=== PATIENT | female | born 1935 | race Caucasian/White ===

== ENCOUNTER 2019-03-26 14:23 | Emergency (ER) | payer OTHER ==
[~2019-03-26] VITALS: Ht 170.2 cm; Wt 80.9 kg
[2019-03-26 14:30] VITALS: Ht 170.2 cm; Wt 80.9 kg
[2019-03-26 14:56] LABS: BASOPHILS 0.5 % (0-2); EOSINOPHILS 1.7 % (0-7); HEMATOCRIT 45.9 % (36.0-48.0); HEMOGLOBIN 15.5 g/dL (12-16); IMMATURE GRANULOCYTES 0.2 % (0-5); LYMPHOCYTES 28.3 % (15-50); MCH 30.2 pg (26.0-34.0); MCHC 33.8 g/dL (31.0-37.0); MCV 89.3 fL (80.0-100.0); MEAN PLATELET VOLUME 10.4 fL (7.4-10.4); MONOCYTES 6.7 % (2-11); NEUTROPHILS 62.6 % (40-80); PLATELET COUNT 135 10x3/uL (130-400); RBC 5.14 10x6/uL (4.00-5.40); RDW 13.7 % (11.5-14.5); WBC 8.6 10x3/uL (4.8-10.8)
[2019-03-26 15:11] LABS: ALBUMIN 3.6 g/dL (3.4-5.0); ALKALINE PHOSPHATASE 56 U/L (46-116); ALT (SGPT) 33 U/L (10-68); BILIRUBIN - TOTAL 0.79 mg/dL (0.2-1.3); CALC OSMOLALITY 282 mosm/kg (275-300); CALCIUM 8.8 mg/dL (8.5-10.1); CARBON DIOXIDE 29.5 mmol/L (21.0-32.0); CHLORIDE - SERUM 106 mmol/L (98-107); CREATININE - SERUM 0.8 mg/dL (0.6-1.3); GLUCOSE 118 mg/dL (74-106); POTASSIUM - SERUM 3.8 mmol/L (3.5-5.1); PROTEIN - SERUM 6.8 g/dL (6.4-8.2); SODIUM 142 mmol/L (136-145); UREA NITROGEN 11 mg/dL (7-18); eGFR NON AFRICAN AMERICAN 73 mL/min (90-120)
[2019-03-26 15:23] LABS: CKMB 8.2 U/L (0.0-3.6); CREATINE KINASE 391 UL (21-215); TROPONIN-I 0.053 ng/mL (0.000-0.060)
[2019-03-26] MEDS ORDERED: BETAPACE 80 MG80 MG PO (16:22)
[2019-03-26 16:57] VITALS: BP 134/75
== END 2019-03-26 16:58 | disposition home or self-care (01) ==
LOC: D.ER 14:23
PROVIDERS: Emergency Medicine
DX: I48.91 Unspecified atrial fibrillation (principal)

== ENCOUNTER 2019-05-13 11:00 | Outpatient (CLI) | payer OTHER ==
[~2019-05-13] VITALS: Ht 170.2 cm; Wt 79.5 kg
--- NOTE | ~2019-05-13 | HEMODYNAMI ---
PATIENT:ANTONIO LUCAS MEDICAL RECORD: [id number] : 37 LOCATION:[facility] ADMISSION DATE: 05/13/19 Generatedon:05/13/201913:18 Patient name: ANTONIO LUCAS Patient #: [id number] SSN: : 1935 Date of study: 05/13/2019 Page: Of Hemodynamic Procedure Report Patient Data Patient Demographics Procedure consent was obtained First Name: ANTONIO Gender: Female Last Name: LANCE : 1935 Patient #: [id number] Age: 83 year(s) Race: Unknown Additional ID: [id number] Contact details Address: [facility] [employer] [facility] State: [place] City: [place] Zip code: [address] Past Medical History Allergies Allergen Reaction Date Comments Reported Other allergy 05/13/2019 codeine. Admission Admission Data Admission Date: 05/13/2019 Admission Time: 11:00 Admit Source: Other Lab Results Lab Result Date: 05/13/2019 Lab Result Time: 11:25 Biochemistry Name Units Result Min Max BUN mg/dl 21 --(----)-* 7 18 Creatinine mg/dl 1 --(--*-)-- 0.6 1.3 CBC Name Units Result Min Max Hematocrit % 44.3 --(*---)-- 42 54 Hemoglobin g/dl 15 --(-*--)-- 13.5 17.5 Procedure Procedure Types Cath Procedure Diagnostic Procedure Cardioversion External Procedure Description Procedure Date Procedure Date: 05/13/2019 Procedure Start Time: 13:07 Procedure End Time: 13:14 Procedure Staff Name Function Dung Angulo RN Nurse Mo Galvan RT Monitor Gerry Robledo CRNA Additional personnel Vicente Conrad MD Performing Physician Procedure Data Cath Procedure Fluoroscopy Diagnostic fluoroscopy Total fluoroscopy Time: 0 time: 0 min min Diagnostic fluoroscopy Total fluoroscopy dose: 0 dose: 0 mGy mGy Contrast Material Contrast Material Type Amount (ml) Isovue 300 0 Estimated blood loss: 0 ml Procedure Complications No complications Procedure Medications Medication Administration Route Dosage Oxygen etCO2 Nasal cannula 2 l/min Refer to Anesthesia Notes for Sedation Medications 0.9% NaCl I.V. 100 ml/hr Hemodynamics Rest HGB: 15 (g/dl) Heart Rate: 65 (bpm) Snapshots Pre Cath Intra NCS Post Cath Vital Signs Time Heart Resp SPO2 etCO2 NIBP (mmHg) Rhythm Pain Sedation Rate (ipm) (%) (mmHg) Status Level (bpm) 13:02:37 68 13 98 0 151/89(119) NSR 0 (11) 10(A) , No pain 13:07:24 74 9 95 27.7 154/99(118) NSR 0 (11) 10(A) , No pain 13:11:33 52 15 99 17.2 124/69(95) NSR 0 (11) 10(A) , No pain Medications Time Medication Route Dose Verified Delivered Reason Notes Effective ness by by 13:04:54 Oxygen etCO2 2 Vicente Dung Per Nasal l/min [place] Angulo RN physician cannula 13:05:01 Refer to Vicente Razo Anesthesia Houston Angulo RN Notes for Sedation Medications 13:05:12 0.9% NaCl I.V. 100 Vicente Dung Per ml/hr [place] Angulo RN physician Procedure Log Time Note 12:32:04 Informed consent obtained and on chart 12:32:09 Admit Source: Other 12:41:26 Time tracking: Regular hours (M-F 7:00 - 5:00) 12:41:29 Plan of Care:Hemodynamics will remain stable., Cardiac rhythm will remain stable., Comfort level will be maintained., Respiratory function will remain adequate., Patient/ family verbilizes understanding of procedure., Procedure tolerated without complication., Recovers from procedure without complications.. 12:45:29 Dung Angulo RN sent for patient. Start room use. 12:46:48 H&P Date Dictated: 05/07/2019 Within 30 days and on chart., H&P Addendum completed by physician on day of procedure. (MUST COMPLETE FOR ALL OUTPATIENTS). 12:47:50 Patient allergic to Other allergycodeine. 12:48:53 Lab Result : Hemoglobin 15 g/dl 12:48:53 Lab Result : Hematocrit 44.3 % 12:48:53 Lab Result : BUN 21 mg/dl 12:48:53 Lab Result : Creatinine 1 mg/dl 12:48:56 Lab results completed and on chart. 12:53:39 Gerry Robledo CRNA present and monitoring patient for TIVA. 12:57:46 Patient received from Pre/Post Procedure Room to CCL 2 Alert and oriented. Tansferred to table in Supine position. 12:57:47 Warm blankets applied, and artis hugger turned on for patient comfort. 12:57:47 Correct patient and procedure confirmed by team. 12:57:48 ECG and BP/O2 sat monitors applied to patient. 12:57:49 Pre-op teaching completed and patient verbalized understanding. 12:57:49 Pre-procedure instructions explained to patient. 12:57:50 Family in waiting room. 12:57:53 Patient NPO since Midnight. 13:01:38 Vital chart was started 13:01:39 Baseline sample Acquired. 13:01:47 Rhythm: atrial fibrillation 13:01:48 Full Disclosure recording started 13:01:50 Is the patient allergic to Iodine/contrast media? No. 13:01:51 Is patient on blood thinner?Yes 13:01:57 ACC The patient was administered the following blood thiners within the last 24 hours: Xarelto 13:01:59 Patient diabetic? No. 13:02:01 Previous problem with sedation/anesthesia? No ? 13:02:02 Snore? No 13:02:03 Sleep apnea? No 13:02:04 Deviated septum? No 13:02:05 Sticks out tongue? Yes 13:02:05 Opens mouth fully? Yes 13:02:07 Airway obstruction? No ? 13:02:10 Dentures? No ? 13:02:19 IV patent on arrival in right forearm with 0.9% NaCl at [facility]. 13:02:28 Quick Combo opened to sterile field. 13:02:31 Quick combo pads placed on patients chest and back. 13:02:39 Alarms reviewed by Obdulio Howard 13:04:54 Oxygen 2 l/min etCO2 Nasal cannula was administered by Dung Angulo RN; Per physician; 13:05:01 Refer to Anesthesia Notes for Sedation Medications was administered by Dung Angulo RN; ; 13:05:12 0.9% NaCl 100 ml/hr I.V. was administered by Dung Angulo RN; Per physician; 13:07:04 Physician arrived 13:07:05 Final Timeout: patient, procedure, and site verified with staff and physician. All members of the team are in agreement. 13:07:05 --------ALL STOP TIME OUT------ 13:07:14 Fire Safety Assessment: C--Open oxygen or nitrous oxide is being used. 13:07:17 Physical assessment completed. ASA score P 2 - A patient with mild systemic disease as per Jaime Paz MD. 13:07:21 Sedation plan: TIVA Medication:Propofol 13:07:50 Procedure started. 13:09:09 Shock delivered. 13:09:09 Defibrillator synced and charged to 200 Joules. 13:09:37 Patient cardioverted to sinus bradycardia. 13:09:51 Procedure ended.(Physican Out) 13:10:34 Fluoroscopy time 00.00 minutes. 13:10:36 Fluoroscopy dose: 0 mGy 13:10:36 Flurop Dose total: 0 13:10:39 Contrast amount:Isovue 300 0ml. 13:11:16 Post-procedure physical assessment completed. ASA score P 2 - A patient with mild systemic disease as per Jaime Paz MD. 13:11:30 Post procedure rhythm: sinus rhythm 13:11:32 Estimated blood loss: 0 ml 13:11:33 Post procedure instruction explained to patient.Patient verbalizes understanding. 13:11:36 Patient needs reinforcement of post procedure teaching. 13:12:22 Procedure and supply charges have been captured, reviewed, submitted and are correct. 13:12:24 Procedure Complication : No complications 13:14:11 Vital chart was stopped 13:14:13 See physician's report for complete and final results. 13:14:17 Report given to Pre/Post Procedure Room. 13:14:19 Patient transfered to Pre/Post Procedure Room with Stretcher. 13:14:21 Full Disclosure recording stopped 13:14:21 Procedure ended. 13:14:33 End room use (Document Last) Device Usage Item Manufacture Quantity Catalog Hospital Part Current Minimal Lot# / Name Number Charge Number Stock Stock Kylah al# Code Grovo 1 [id number] Combo Signature Audit Chase Stage Time Signature Unsigned Intra-Procedure 05/13/2019 Mo Galvan RT(R) 1:15:12 PM RT(R) 05/13/2019 1:17:52 PM Intra-Procedure 05/13/2019 Mo Galvan 1:18:35 PM RT(R) Signatures Nurse : Dung Angulo RN Signature : Date : Time : Monitor : Mo Galvan RT Signature : Date : Time : Performing Physician : Signature : Vicente Conrad MD Date : Time : [facility] [address] [place] [address]
[~2019-05-13 11:00] MED LIST: BETAPACE 80 MG80 MG PO
[2019-05-13 11:28] VITALS: BP 130/78; Ht 170.2 cm; Wt 79.5 kg
[2019-05-13] MEDS ORDERED: MULTI-DAY VITAM1 TAB PO (11:32)
[2019-05-13] MEDS ORDERED: XARELTO15 MG PO (11:33)
[2019-05-13] MEDS ORDERED: CALTRATE+D3 PL1 EACH PO (11:33)
[2019-05-13] MEDS ORDERED: BAYER CHEWABLE81 MG PO (11:34)
[2019-05-13 11:50] LABS: INR 1.52 (0.85-1.17); PROTIME 17.7 SECONDS (11.6-15.0)
[2019-05-13 11:53] LABS: ANION GAP 11.2 mmol/L (8-16); CALCIUM 9.2 mg/dL (8.5-10.1); POTASSIUM - SERUM 4.2 mmol/L (3.5-5.1)
[2019-05-13 12:42] LABS: BASOPHILS 0.8 % (0-2); EOSINOPHILS 2.1 % (0-7); HEMATOCRIT 44.3 % (36.0-48.0); IMMATURE GRANULOCYTES 0.3 % (0-5); LYMPHOCYTES 31.2 % (15-50); MCH 29.6 pg (26.0-34.0); MCHC 33.9 g/dL (31.0-37.0); MCV 87.5 fL (80.0-100.0); MEAN PLATELET VOLUME 11.4 fL (7.4-10.4); MONOCYTES 6.9 % (2-11); NEUTROPHILS 58.7 % (40-80); PLATELET COUNT 159 10x3/uL (130-400); RBC 5.06 10x6/uL (4.00-5.40); WBC 7.7 10x3/uL (4.8-10.8)
--- NOTE | 2019-05-13 13:25 | NUR ---
PATIENT ARRIVED TO ROOM 6, PLACED ON CM. VSS. WILL CONTINUE TO MONITOR. PHYSICIAN AT BEDSIDE TO UPDATE FRIEND.
--- NOTE | 2019-05-13 13:40 | NUR ---
PATIENT RESTING. VSS ON ROOM AIR. NO C/O PAIN, NUMBNESS, OR TINGLING.
--- NOTE | 2019-05-13 14:10 | NUR ---
PATIENT AWAKE, FRIEND PRESENT AT BEDSIDE. VSS ON ROOM AIR. SINUS BRADYCARDIA ON CM. NO C/O PAIN, NUMBNESS, OR TINGLING.
--- NOTE | 2019-05-13 15:25 | NUR ---
IV REMOVED. WRITTEN AND VERBAL INSTRUCTIONS GIVEN TO PATIENT REGARDING DISCHARGE INSTRUCTIONS AND MEDICATION COMPLIANCE. INSTRUCTED PATIENT THAT PHYSICIAN'S OFFICE HAS XARELTO AT FLIGHT COMMUNICATIONS OFFICER FOR PATIENT TO AUTOMATIC LATHE TENDER. PATIENT VOIDED WITHOUT DIFFICULTY. PATIENT TRANSPORTED VIA WHEELCHAIR TO CAR WITH FRIEND DRIVING, ALL BELONGINGS WITH PATIENT.
[2019-05-14] MEDS ORDERED: FERROUS SULFAT325 MG PO (09:25)
== END 2019-05-13 14:25 ==
LOC: D.CATH 11:00
PROVIDERS: ATTEND Internal Medicine Cardiovascular Disease
DX: I48.91 Unspecified atrial fibrillation (principal); Z01.812 Encounter for preprocedural laboratory examination

== ENCOUNTER 2019-05-14 08:20 | Inpatient (IN) | payer OTHER ==
[~2019-05-14] VITALS: Ht 170.2 cm; Wt 72.7 kg
[~2019-05-14 08:20] MED LIST changes: +BAYER CHEWABLE81 MG PO; +CALTRATE+D3 PL1 EACH PO; +MULTI-DAY VITAM1 TAB PO; +XARELTO15 MG PO
--- NOTE | 2019-05-14 08:54 | NUR ---
THIS NURSE CALLED [facility]EV[facility] AT 0844, SPOKE WITH MEÑO, AND EXPLAINED THAT PT CURRENTLY TAKING XARELTO THEREFORE MET EXCLUSION CRITERIA. ZENAIDA CALLED AT 0850 AND INFORMED THIS NURSE THAT NEUROLOGIST, DR. HUMPHREYS STATES PT IS NOT A CANDIDATE BASED ON EXCLUSION CRITERIA. EDP DR. PARSON INFORMED.
[2019-05-14 08:56] LABS: BASOPHILS 0.5 % (0-2); EOSINOPHILS 2.7 % (0-7); HEMATOCRIT 42.4 % (36.0-48.0); HEMOGLOBIN 14.1 g/dL (12-16); IMMATURE GRANULOCYTES 0.1 % (0-5); LYMPHOCYTES 21.8 % (15-50); MCH 29.1 pg (26.0-34.0); MCHC 33.3 g/dL (31.0-37.0); MCV 87.4 fL (80.0-100.0); MEAN PLATELET VOLUME 10.7 fL (7.4-10.4); MONOCYTES 7.2 % (2-11); NEUTROPHILS 67.7 % (40-80); PLATELET COUNT 141 10x3/uL (130-400); RBC 4.85 10x6/uL (4.00-5.40); RDW 13.9 % (11.5-14.5); WBC 7.8 10x3/uL (4.8-10.8)
[2019-05-14 09:00] VITALS: BP 140/71
[2019-05-14 09:01] LABS: ALBUMIN 3.4 g/dL (3.4-5.0); ALKALINE PHOSPHATASE 61 U/L (46-116); ALT (SGPT) 35 U/L (10-68); BILIRUBIN - TOTAL 0.88 mg/dL (0.2-1.3); CALC OSMOLALITY 285 mosm/kg (275-300); CALCIUM 8.8 mg/dL (8.5-10.1); CARBON DIOXIDE 27.3 mmol/L (21.0-32.0); CHLORIDE - SERUM 107 mmol/L (98-107); CREATININE - SERUM 1.1 mg/dL (0.6-1.3); GLUCOSE 115 mg/dL (74-106); POTASSIUM - SERUM 4.2 mmol/L (3.5-5.1); PROTEIN - SERUM 6.4 g/dL (6.4-8.2); SODIUM 141 mmol/L (136-145); UREA NITROGEN 24 mg/dL (7-18); eGFR NON AFRICAN AMERICAN 50 mL/min (90-120)
[2019-05-14 09:04] LABS: CKMB 2.9 U/L (0.0-3.6); CREATINE KINASE 130 UL (21-215); MAGNESIUM - SERUM 2.1 mg/dL (1.8-2.4); TROPONIN-I 0.057 ng/mL (0.000-0.060)
[2019-05-14 09:18] LABS: APTT 27.8 SECONDS (22.8-39.4)
[2019-05-14 09:19] LABS: INR 1.11 (0.85-1.17); PROTIME 13.8 SECONDS (11.6-15.0)
[2019-05-14] MEDS ORDERED: FERROUS SULFAT325 MG PO (09:25)
[2019-05-14 10:00] VITALS: BP 143/79
--- NOTE | 2019-05-14 10:14 | NUR ---
PT LYING IN BED, RESTING WITH EYES CLOSED. WAKES EASILY TO VERBAL STIMULI. LEFT SIDED UPPER AND LOWER EXTREMITIES REMAIN FLACCID. LEFT SIDED FACIAL DROOP REMAINS. PT ORIENTED TO PERSON AND PLACE UPON WAKING. PT DENIES ANY PAIN OR NEEDS. FRIENDS OF PT AT THE BEDSIDE. THIS NURSE SPOKE WITH FAMILY MEMBER OF PT, AKOSUA, AND WITH PT'S PERMISSION GAVE FAMILY MEMBER UPDATE ON PT'S STATUS AND PLAN TO ADMIT TO [facility]. WILL CONTINUE TO MONITOR.
[2019-05-14 10:26] LABS: APPEARANCE HAZY (CLEAR); BILIRUBIN NEGATIVE (NEGATIVE); COLOR YELLOW (YELLOW); GLUCOSE NEGATIVE (NEGATIVE); KETONE NEGATIVE (NEGATIVE); NITRITE NEGATIVE (NEGATIVE); PROTEIN NEGATIVE (NEGATIVE); UROBILINOGEN NORMAL (NORMAL)
[2019-05-14 11:00] VITALS: BP 145/78
--- NOTE | 2019-05-14 13:12 | NUR ---
DR UP REQUESTED WITNESS WHEN HE WENT IN TO SPEAK TO THE FAMILY. FOLLOWED HIM INTO THE ROOM. HE INTRODUCED HIMSELF TO THEM AND EXPLAINED TO THEM THE SEVERITY OF THE STROKE THE PATIENT HAD. HE ALSO EXPLAINED THAT HE WAS MADE AWARE THAT THEY WANTED TO TRANSFER THE PATIENT, BUT THEY NEEDED FURTHER TESTING TO SEE IF THERE WAS A CLOT OR IF IT WAS ISCHEMIC, AND WENT INTO GREATER DETAIL WELL THE TREATMENT OF EACH TYPE. IT WAS REQUESTED THAT HE SPEAK WITH THE SON IN LAW OVER THE PHONE. HE EXPLAINED EVERYTHING TO AGAIN TO HIM VIA SPEAKERPHONE, AND ALL QUESTIONS WERE ANSWERED THAT COULD BE ANSWERED AT THIS TIME. SON-IN-LAW HAS REQUESTED TO BE KEPT INFORMED SO THAT HE CAN KEEP HIS INFORMED WHO JUST HAD SURGERY HERSELF. THE NUMBER TO THE NURSES STATION WAS GIVEN TO HIM SO HE COULD CALL THE NURSES STATION DIRECTILY.
--- NOTE | 2019-05-14 13:28 | NUR ---
PATIENT TAKEN TO CTA, SPEECH THERAPY HERE TO SEE THE PATIENT WHEN SHE RETURNS. ALLL MEDICATIONS ON HOLD FOR NOW UNTIL NGT AND OR PASSES SWALLOW EVAL
--- NOTE | 2019-05-14 14:40 | NUR ---
CALLED THE DAUGHTER ANA ROSA AND GAVE AN UPDATE AND DISCUSSED THE CARE PLAN. THE PATIENT HAS PASSED HER SWALLOW EVAL AND WILL HAVE MODIFIED DIET. THE FAMILY HAS CHOSE TO PUT THE NG TUBE PLACEMENT ON HOLD AT THIS TIME. THE MED LIST WAS REVIEWED WITH THE FAMILY. PHONE NUMBER TO THE UNIT GIVEN TO THE FAMILY.
[2019-05-14 16:09] VITALS: Ht 170.2 cm; Wt 72.7 kg
[2019-05-14 17:31] VITALS: BP 138/71
--- NOTE | 2019-05-18 08:23 | MORECARE ---
CASE MANAGEMENT DISCHARGE SUMMARY PATIENT: ANTONIO LUCAS UNIT: [id number] ADM DATE: 05/14/19 AGE: 83 : 36 SEX: F ROOM/BED: D.2101 AUTHOR: ELVIN GRANDE PHYSICIAN: REFERRING PHYSICIAN: ERMIAS UP MD DATE OF SERVICE: 05/18/19 Discharge Plan Patient Name: ANTONIO LUCAS Facility: [facility]:[place] : 1935 Planned Disposition: Acute Care Hospital Anticipated Discharge Date: 05/14/19 Discharge Date: 05/14/2019 Expected LOS: 1 Initial Reviewer: [email or web address] Initial Review Date: 05/18/2019 Generated: 05/18/19 9:23 am Patient Name: ANTONIO LUCAS Page [id number] at 0823 All edits/amendments must be made on the electronic document DICTATION DATE: 05/18/19822 LABOR SUPERVISOR: CYNDY 05/18/19822 RPT#: [id number] DC DATE:05/14/19 STATUS: DIS IN [facility] [address] [place] [address] END OF REPORT
== END 2019-05-14 19:53 | disposition short-term general hospital (02) | DRG 65 ==
LOC: D.ER 08:20 → D.M2 10:58
PROVIDERS: Family Medicine; ADMIT Internal Medicine Nephrology; ATTEND Internal Medicine Nephrology
DX: I63.9 Cerebral infarction, unspecified (principal); G81.94 Hemiplegia, unspecified affecting left nondominant side; N17.9 Acute kidney failure, unspecified; I48.91 Unspecified atrial fibrillation; R40.2363 Coma scale, best motor response, obeys commands, at hospital admission; R40.2133 Coma scale, eyes open, to sound, at hospital admission; R40.2253 Coma scale, best verbal response, oriented, at hospital admission